=== PATIENT | female | born 1955 | race African-American/Black ===

== ENCOUNTER → 2023-05-28 | Outpatient (CLI) | payer OTHER ==
--- NOTE | 2023-05-30 11:20 | MR ---
EXAMINATION TYPE: MR cervical spine wo con DATE OF EXAM: 05/28/2023 2:03 PM COMPARISON: NONE HISTORY: Neck pain into rt arm/fingers Multiplanar MultiSpin echo imaging of the cervical spine was performed. Comparison: none C2-C3: No evidence for degenerative disc disease. No disc bulge/herniation or protrusion. No Canal stenosis. Foramina are patent bilaterally. C3-C4: Mild decreased signal in lumbar spine compatible with degenerative disc disease. Posterior milo tral disc herniation with ventral CORD contact. Disc herniation measures 4.3 mm in AP dimension. No e vidence for compressive myelopathy at this time or central stenosis. Neural foramina are patent bilat erally. C4-C5: Mild disc desiccation. Posterior central disc herniation with AP measurement of 2.8 mm. Ventra l cord contact without compressive myelopathy. No central stenosis. Degenerative change of the cervic al apophyseal joints resulting in mild right foraminal encroachment. C5-C6: Mild disc desiccation with posterior central disc herniation and ventral cord contact. Disc he rniation measures 3.1 mm in AP dimension. Ventral cord distortion without definite contact. Mild bila teral neural foraminal encroachment. No central stenosis. C6-C7: Mild disc desiccation and circumferential disc bulge greatest posteriorly. Effacement of the v entral thecal sac. Constriction of the thecal sac without evidence of central stenosis. No disc herni ation. Bilateral foraminal encroachment moderate on the left and mild on the right. C7-T1: No evidence for degenerative disc disease. No disc bulge/herniation or protrusion. No Canal stenosis. Foramina are patent bilaterally. Cervical segments are intact. There is normal alignment. Cervical spinal cord is of normal signal. Craniovertebral junction relationships are within normal limits. Ventral spondylosis. IMPRESSION: 1. Multilevel degenerative disc disease with multilevel disc herniations as outlined above. Varying D egrees of foraminal encroachment.
== END | disposition home or self-care (01) ==
LOC: RADMRIMAIN 12:41
PROVIDERS: ATTEND Orthopaedic Surgery
DX: M50.222 Other cervical disc displacement at C5-C6 level (principal); M50.221 Other cervical disc displacement at C4-C5 level; M50.223 Other cervical disc displacement at C6-C7 level; M50.323 Other cervical disc degeneration at C6-C7 level
CPT/HCPCS: 72141